=== PATIENT | female | born 1995 | race Caucasian/White ===

== ENCOUNTER 2018-04-19 13:54 | Emergency (ER) | payer SELFPAY ==
--- NOTE | 2018-04-19 14:37 | ER Document Report ---
ED Medical Screen (RME) - General Chief Complaint: Dizziness Stated Complaint: BLOOD SUGAR ISSUES Time Seen by Provider: 04/19/18 14:34 Notes: RAPID MEDICAL EVALUATION DISCLOSURE I have seen this patient as part of a Rapid Medical Evaluation and, if applicable, placed any initially appropriate orders. The patient will be seen and fully evaluated, including a full history and physical exam, by a provider ( in Main ED or Fast Track) when a room becomes available. 22-year-old female here with complaints of lightheadedness, feeling "shaky" over the past few weeks. The last time she went to her doctor, PCP wanted her to be checked for diabetes however patient states her Medicaid fell through so she is unable to go back to be tested. Today she had an episode while she was driving and felt like she was going to pass out so she had to kiln puller. She denies any previous history of diabetes but has a family history of diabetes in her father. Denies any other symptoms. No new medications or medication changes. EXAM CTAB RRR - Related Data Allergies/Adverse Reactions: No Known Allergies Allergy (Verified 04/19/18 14:35) Past Medical History - Social History Chew tobacco use (# tins/day): No Frequency of alcohol use: None Drug Abuse: None Renal/ Medical History: Denies: Hx Peritoneal Dialysis Physical Exam - Vital signs Vitals: Temp Pulse Resp BP Pulse Ox 98.2 F 81 16 120/70 100 04/19/18 14:17 04/19/18 14:17 04/19/18 14:17 04/19/18 14:17 04/19/18 14:17 Course - Vital Signs Vital signs: Temp Pulse Resp BP Pulse Ox 98.2 F 81 16 120/70 100 04/19/18 14:17 04/19/18 14:17 04/19/18 14:17 04/19/18 14:17 04/19/18 14:17 Doctor's Discharge - Discharge Referrals: PAULINE JOHN MD [Primary Care Provider] - Follow up as needed
[2018-04-19 16:00] LABS: ABSOLUTE EOSINOPHILS # (AUTO) 0.7 10^3/uL (0.0-0.6); ABSOLUTE LYMPHOCYTES (AUTO) 2.5 10^3/uL (0.5-4.7); ABSOLUTE MONOCYTES (AUTO) 0.6 10^3/uL (0.1-1.4); ABSOLUTE NEUT (AUTO) 5.8 10^3/uL (1.7-8.2); BASOPHILS % (AUTO) 0.4 % (0-2); EOSINOPHILS % (AUTO) 6.9 % (0-6); HEMATOCRIT 45.3 % (36.0-47.0); HEMOGLOBIN 15.7 g/dL (12.0-15.5); LYMPHOCYTES % (AUTO) 25.5 % (13-45); MEAN CORPUSCULAR HEMOGLOBIN 29.6 pg (27.0-33.4); MEAN CORPUSCULAR HGB CONC 34.7 g/dL (32.0-36.0); MEAN CORPUSCULAR VOLUME 85 fl (80-97); MONOCYTES % (AUTO) 6.5 % (3-13); PLATELET COUNT 226 10^3/uL (150-450); RED BLOOD COUNT 5.31 10^6/uL (3.72-5.28); RED CELL DISTRIBUTION WIDTH 12.8 % (11.5-14.0); SEGMENTED NEUTROPHILS % (AUTO) 60.7 % (42-78); TOTAL CELLS COUNTED % (AUTO) 100 %; WHITE BLOOD COUNT 9.6 10^3/uL (4.0-10.5)
[2018-04-19 16:19] LABS: BLOOD UREA NITROGEN 15 mg/dL (7-20); CALCIUM 9.4 mg/dL (8.4-10.2); CARBON DIOXIDE 26 mmol/L (22-30); CHLORIDE 104 mmol/L (98-107); GLUCOSE 90 mg/dL (75-110); POTASSIUM 4.1 mmol/L (3.6-5.0); SODIUM 144.2 mmol/L (137-145)
[2018-04-19 16:20] LABS: ALANINE AMINOTRANSFERASE 17 U/L (9-52); ALBUMIN 4.7 g/dL (3.5-5.0); ALKALINE PHOSPHATASE 56 U/L (38-126); ANION GAP 14 (5-19); ASPARTATE AMINO TRANSFERASE 26 U/L (14-36); BILIRUBIN,DIRECT 0.3 mg/dL (0.0-0.4); BILIRUBIN,TOTAL 0.6 mg/dL (0.2-1.3); PHOSPHORUS 3.7 mg/dL (2.5-4.5); TOTAL PROTEIN 7.9 g/dL (6.3-8.2)
[2018-04-19 16:23] LABS: APPEARANCE,URINE SLIGHTLY-CLOUDY; BILIRUBIN,URINE NEGATIVE (NEGATIVE); COLOR,URINE YELLOW; GLUCOSE, URINE NEGATIVE (NEGATIVE); KETONES,URINE NEGATIVE (NEGATIVE); LEUKOCYTE ESTERASE,URINE TRACE (NEGATIVE); NITRITE,URINE NEGATIVE (NEGATIVE); PROTEIN,URINE NEGATIVE (NEGATIVE); URINE SPECIFIC GRAVITY 1.021
[2018-04-19 17:18] VITALS: BP 98/64
--- NOTE | 2018-04-19 17:28 | ER Document Report ---
ED Dizziness/Weakness - General Chief Complaint: Dizziness Stated Complaint: BLOOD SUGAR ISSUES Time Seen by Provider: 04/19/18 14:34 Mode of Arrival: Ambulatory Information source: Patient Notes: Patient is a 22-year-old female who presents to the ER today for possible blood sugar issues, dizziness, lightheadedness and almost passing out while driving today. Patient states that "since high school" she has had episodes of shaking and dizziness that causes her to almost pass out. She has never actually passed out. Patient has been evaluated by her primary care provider for this and they thought she may have diabetes, but she has not been seen by them recently to actually have a workup done for that. She states this is just a thing that they talked about. Patient states that she does eat 3 meals a day and does see an improvement in her symptoms whenever she eats peanut butter crackers or drinks juice during her symptoms. Patient denies any palpitations, chest pain or shortness of breath during the symptoms. Patient also states that she drinks plenty of water daily. - Related Data Allergies/Adverse Reactions: No Known Allergies Allergy (Verified 04/19/18 14:35) Past Medical History - General Information source: Patient - Social History Smoking Status: Never Smoker Chew tobacco use (# tins/day): No Frequency of alcohol use: None Drug Abuse: None Family History: Reviewed & Not Pertinent Patient has suicidal ideation: No Patient has homicidal ideation: No Renal/ Medical History: Denies: Hx Peritoneal Dialysis Review of Systems - Review of Systems Constitutional: No symptoms reported EENT: No symptoms reported Cardiovascular: No symptoms reported Respiratory: No symptoms reported Gastrointestinal: No symptoms reported Genitourinary: No symptoms reported Female Genitourinary: No symptoms reported Musculoskeletal: No symptoms reported Skin: No symptoms reported Hematologic/Lymphatic: No symptoms reported Neurological/Psychological: See HPI Physical Exam - Vital signs Vitals: Temp Pulse Resp BP Pulse Ox 98.2 F 81 16 120/70 100 04/19/18 14:17 04/19/18 14:17 04/19/18 14:17 04/19/18 14:17 04/19/18 14:17 - Notes Notes: PHYSICAL EXAMINATION: GENERAL: Well-appearing and in no acute distress. HEAD: Atraumatic, normocephalic. EYES: Pupils equal round and reactive to light, extraocular movements intact, sclera anicteric, conjunctiva are normal. NECK: Normal range of motion, supple without lymphadenopathy LUNGS: CTAB and equal. No wheezes rales or rhonchi. HEART: Regular rate and rhythm without murmurs ABDOMEN: Soft, no tenderness. No guarding, no rebound EXTREMITIES: Normal range of motion, no pitting edema. No cyanosis. NEUROLOGICAL: Cranial nerves grossly intact. Normal sensory/motor exams. Good and equal strength bilaterally, Kernig and Brudzinski's signs negative, Romberg' s test normal, normal heel to gu testing PSYCH: Normal mood, normal affect. SKIN: Warm, Dry, normal turgor, no rashes or lesions noted Course - Re-evaluation Re-evalutation: 04/19/18 22:25 Lab work is all unremarkable today including an Accu-Chek of 88 on arrival. Patient states that she just had lunch prior to arrival. A1c today is 4.7. I do believe that patient does have low blood sugars on average. I did advise that she and carbohydrates to at least breakfast and dinner. [id number] in the room prior to discharge states that she actually does not eat any breakfast that she knows of. I did advise that patient follow up with her primary care provider. Patient looks well and has normal vital signs today. She is not shaky or having any dizziness here. Orthostatic vital signs do not give any evidence of orthostatic hypotension. - Vital Signs Vital signs: Temp Pulse Resp BP Pulse Ox 98.2 F 72 16 98/64 L 100 04/19/18 14:17 04/19/18 17:17 04/19/18 14:17 04/19/18 17:17 04/19/18 14:17 - Laboratory Result Diagrams: 04/19/18 15:40 04/19/18 15:40 Laboratory results interpreted by me: 04/19/18 04/19/18 04/19/18 15:40 15:40 15:58 RBC 5.31 H Hgb 15.7 H Eosinophils % 6.9 H Absolute Eosinophils 0.7 H Hemoglobin A1c % 4.6 L Urine Urobilinogen 2.0 H Ur Leukocyte Esterase TRACE H Discharge - Discharge Clinical Impression: Low blood sugar Condition: Stable Disposition: HOME, SELF-CARE Additional Instructions: Return immediately for any new or worsening symptoms. Follow up with primary care provider, call tomorrow to make followup appointment. Please start to incorporate some carbohydrates into your diet to keep her sugar higher for longer. This will do much better than eating sugary foods or drinking sugary drinks. Forms: Return to Work Referrals: PAULINE JOHN MD [NO LOCAL MD] - Follow up as needed
== END 2018-04-19 17:45 | disposition home or self-care (01) ==
LOC: ER 13:54
DX: R42 Dizziness and giddiness (principal)
CPT/HCPCS: 36415; 80053; 81001; 81025; 82962; 83036; 83735; 84100; 85025; 99284

== ENCOUNTER 2018-07-15 08:37 | Emergency (ER) | payer SELFPAY ==
--- NOTE | 2018-07-15 09:33 | ER Document Report ---
HPI - HPI Pain Level: 4 Notes: Patient is a 22-year-old female who presents to the ED complaining of right anterior leg redness and mild swelling x1 day. Patient states that she did have a cut to that leg from a few days ago that she has been on antibiotics for. Patient states that she was on her feet for 9 hours yesterday cutting her when she noticed increased swelling to that area last night. Patient states that she elevated her legs and has had resolution of that swelling since. Patient states that he did feel warm initially as well. She denies any drug allergies. Patient does admit to smoking. Denies any prolonged immobilization , distance travel, recent surgery/trauma, personal cancer history, hormone use, or previous DVT/PE. Denies any headache, fever, URI, sore throat, chest pain, palpitations, syncope, cough, shortness of breath, wheeze, dyspnea, abdominal pain, nausea/vomiting/diarrhea, urinary retention, dysuria, hematuria, loss of control of bowel or bladder, numbness/tingling, muscle paralysis/weakness, or rash. - ROS Systems Reviewed and Negative: Yes All other systems reviewed and negative Past Medical History - Social History Smoking Status: Current Every Day Smoker Family History: Reviewed & Not Pertinent Renal/ Medical History: Denies: Hx Peritoneal Dialysis Vertical Provider Document - CONSTITUTIONAL Agree With Documented VS: Yes Notes: PHYSICAL EXAMINATION: GENERAL: Well-appearing, well-nourished and in no acute distress. LUNGS: Breath sounds clear to auscultation bilaterally and equal. No wheezes rales or rhonchi. HEART: Regular rate and rhythm without murmurs, rubs, gallops. Musculoskeletal: Rt LE: FROM to passive/active. Strength 5+/5. No asymmetry to lower extremities. Pierce neg b/l. Extremities: Trace pitting edema b/l (equal). Peripheral pulses 2+. Capillary refill less than 3 seconds. NEUROLOGICAL: Cranial nerves grossly intact. Normal speech, normal gait. Normal sensory, motor exams PSYCH: Normal mood, normal affect. SKIN: There is an abrasion to the rt anterior lower leg w/o tenderness and only mild erythema and some induration. No fluctuance, streaks, or purulence. Just proximal there is a superficial mildly erythemic are of the skin that has minimal tenderness w/o palpable cord. There is no deep tenderness to the calf and the area of concern is anterior lower leg. N/V intact distal otherwise. - INFECTION CONTROL TRAVEL OUTSIDE OF THE [place] IN LAST 30 DAYS: No Course - Re-evaluation Re-evalutation: 07/15/18 09:33 Patient is an afebrile, well-hydrated, 22-year-old ED with right lower extremity erythema and suspected mild cellulitis. Differential would include a superficial venous thrombosis, but very low suspicion for any DVT based on H&P today. Vitals are acceptable without any significant tachycardia, tachypnea, or hypoxia. PE is otherwise unremarkable for any neurovascular compromise, obvious tendon/ligament rupture, obvious fracture/dislocation, septic joint. There is no leg asymmetry bilaterally with only trace edema bilaterally. The area of concern is superficial to the skin without any deep tenderness or posterior calf discomfort. Patient has lower risk factors for DVT and has an obvious recent abrasion to the anterior lower leg just distal to the area of concern which makes me suspect more of a mild cellulitis without any fluctuance or evidence of abscess. Patient had improvement of her symptoms since yesterday. I did review with patient that she appears to normally have trace pitting edema and by being on her legs and standing all day long may increase the swelling in her lower extremities. Recommend elevation and compression stockings. Conservative measures otherwise for symptoms. Patient may continue her doxycycline as she has noted improvement in the appearance of the wound distal. Recheck with your PCM in 2-3 days. Return to the ED with any worsening /concerning symptoms otherwise as reviewed in discharge. Patient is in agreement. - Vital Signs Vital signs: Temp Pulse Resp BP Pulse Ox 98.5 F 86 16 105/62 100 07/15/18 08:45 07/15/18 08:45 07/15/18 08:45 07/15/18 08:45 07/15/18 08:45 Discharge - Discharge Clinical Impression: Right leg pain Condition: Stable Disposition: HOME, SELF-CARE Instructions: Leg Pain Nonspecific ([facility]) Additional Instructions: Rest, Ice, Compression, Elevation Compression stockings Tylenol/ibuprofen as needed Light stretches daily Strength exercises as able Moist heat and massage may help F/u with your PCP in 2-3 days for a recheck Consider consult(s) with Orthopedics/physical therapy for ongoing/worsening symptoms Return to the ED with any worsening symptoms and/or development of fever, headache, chest pain, palpitations, syncope, shortness of breath, trouble breathing, abdominal pain, n/v/d, muscle weakness/paralysis, numbness/tingling, swelling, redness, or other worsening symptoms that are concerning to you. Forms: Smoking Cessation Education Referrals: [facility] [Provider Group] - Follow up as needed
--- NOTE | 2018-07-15 09:46 | ER Document Report ---
HPI - HPI Pain Level: 4 Notes: Patient is a 22-year-old female with no significant past medical history presents to the ED complaining of nasal congestion/discharge, postnasal drip, dry irritated throat, occasional dry nonproductive cough secondary to irritation in her throat x1 day. 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 Patient states that she will need a work note. Patient states that she is otherwise been eating and drinking without any difficulties. She is urinating normally and having normal bowel movements. Denies any drug allergies or smoking. No significant cardiopulmonary medical history. Denies any headache, fever, neck pain, chest pain, palpitations, syncope, shortness of breath, wheeze, dyspnea, abdominal pain, nausea/vomiting/ diarrhea, urinary retention, dysuria, hematuria, or rash. - ROS Systems Reviewed and Negative: Yes All other systems reviewed and negative - RESPIRATORY Respiratory: REPORTS: Coughing - c/o dry cough Past Medical History - Social History Smoking Status: Never Smoker Family History: Reviewed & Not Pertinent Patient has suicidal ideation: No Patient has homicidal ideation: No Renal/ Medical History: Denies: Hx Peritoneal Dialysis Vertical Provider Document - CONSTITUTIONAL Agree With Documented VS: Yes Notes: PHYSICAL EXAMINATION: GENERAL: Well-appearing, well-nourished and in no acute distress. A&Ox4. Answers questions appropriately. Moves comfortably w/o notable distress HEAD: Atraumatic, normocephalic. EYES: Pupils equal round and reactive to light, extraocular movements intact, sclera anicteric, conjunctiva are normal. ENT: EAC clear b/l. TM's intact b/l without erythema, fluid, or perforation. Nares patent and with clear discharge. oropharynx w/o erythema without exudates. No tonsilar hypertrophy without erythema or exudate. No palatine shift. Uvula midline. No tongue protrusion. No drooling, hoarseness, or airway compromise. Moist mucous membranes. No sinus tenderness. NECK: Normal range of motion, supple without lymphadenopathy. No rigidity/ meningismus. LUNGS: Breath sounds clear to auscultation bilaterally and equal. No wheezes rales or rhonchi. No retractions HEART: Regular rate and rhythm without murmurs, rubs, gallops. ABDOMEN: Soft, nontender, nondistended abdomen. No guarding, no rebound. No masses appreciated. Normal bowel sounds present. No CVA tenderness bilaterally. No hepatosplenomegaly. NEUROLOGICAL: Normal speech, normal gait. Normal sensory, motor exams PSYCH: Normal mood, normal affect. SKIN: Warm, Dry, normal turgor, no rashes or lesions noted. - INFECTION CONTROL TRAVEL OUTSIDE OF THE [place] IN LAST 30 DAYS: No Course - Re-evaluation Re-evalutation: 07/15/18 09:45 Patient is an afebrile, well-hydrated, 22-year-old female who presents to the ED with acute URI, suspect viral. Vitals are stable. PE is otherwise unremarkable. No labs or imaging warranted at this time based on H&P. Patient has no significant cardiopulmonary or immunocompromised medical conditions. Patient's lungs are clear to auscultation bilaterally without tachycardia, hypoxia, or tachypnea. Patient is tolerating p.o. without any difficulties. Low suspicion for any meningitis, sepsis, peritonsillar/pharyngeal abscess, respiratory compromise, severe dehydration, or other emergent systemic condition at this time. Patient is aware this condition can change from initial presentation and she needs to monitor symptoms closely. Conservative measures otherwise for symptoms. Recheck with your PCM in 3-5 days. Return to the ED with any worsening/concerning symptoms otherwise as reviewed in discharge. Patient is in agreement. Work note provided. - Vital Signs Vital signs: Temp Pulse Resp BP Pulse Ox 98.5 F 86 16 105/62 100 07/15/18 08:45 07/15/18 08:45 07/15/18 08:45 07/15/18 08:45 07/15/18 08:45 Discharge - Discharge Clinical Impression: Acute URI Condition: Stable Disposition: HOME, SELF-CARE Additional Instructions: Maintain adequate fluid intake Take meds as directed tylenol/ibuprofen as needed over the counter cold medication as needed for symptoms Humidified air may help Wash your hands regularly Wear a mask when coughing F/u: with your PCM in 3-5 days for a recheck Return to the ED with any fever, worsening pain, chest pain, palpitations, syncope, worsening VINCENT, neck pain/stiffness, shortness of breath, wheezing, drooling, trouble swallowing/breathing, abdominal pain, n/v/d, rash, or worsening/concerning symptoms otherwise. Forms: Return to Work Referrals: [facility] [Provider Group] - Follow up as needed [facility] [Provider Group] - Follow up as needed
[2018-07-15 10:20] VITALS: BP 100/65
== END 2018-07-15 10:20 | disposition home or self-care (01) ==
LOC: ER 08:37
DX: J06.9 Acute upper respiratory infection, unspecified (principal); R09.81 Nasal congestion; R09.82 Postnasal drip; R09.89 Other specified symptoms and signs involving the circulatory and respiratory systems; R05 Cough
CPT/HCPCS: 99283

== ENCOUNTER 2018-07-23 12:48 | Emergency (ER) | payer SELFPAY ==
[2018-07-23] MEDS ORDERED: PSEUDOEPHEDRINE HCL 30 MG TABLET PO ONE (13:57)
[2018-07-23] MEDS ORDERED: IBUPROFEN 800 MG TABLET PO ONE (13:57)
--- NOTE | 2018-07-23 13:59 | ER Document Report ---
HPI - HPI Patient complains to provider of: Cough, wheezing Onset: Last week Onset/Duration: Persistent Quality of pain: Achy Pain Level: 4 Context: Patient presents complaining of cough with wheezing and congestion. Patient states she was here last week with similar symptoms. Patient denies any fever. Associated Symptoms: Nonproductive cough, Rhinnorhea, Sinus pain/drainage. denies: Fever Exacerbated by: Denies Relieved by: Denies Similar symptoms previously: Yes Recently seen / treated by doctor: Yes - ROS ROS below otherwise negative: Yes Systems Reviewed and Negative: Yes All other systems reviewed and negative - CONSTITUTIONAL Constitutional: DENIES: Fever - EENT EENT: REPORTS: Sore Throat, Nasal Drainage-Clear, Congestion - NEURO Neurology: DENIES: Headache - CARDIOVASCULAR Cardiovascular: DENIES: Chest pain - RESPIRATORY Respiratory: REPORTS: Coughing. DENIES: Trouble Breathing - GASTROINTESTINAL Gastrointestinal: DENIES: Nausea, Patient vomiting - MUSCULOSKELETAL Musculoskeletal: DENIES: Back Pain, Neck Pain - DERM Skin Color: Normal Skin Problems: None Past Medical History - General Information source: Patient - Social History Smoking Status: Never Smoker Frequency of alcohol use: None Drug Abuse: None Occupation: Daycare provider Lives with: Family Family History: Reviewed & Not Pertinent - Medical History Medical History: Negative Renal/ Medical History: Denies: Hx Peritoneal Dialysis Surgical Hx: Negative Vertical Provider Document - CONSTITUTIONAL Agree With Documented VS: Yes Exam Limitations: No Limitations General Appearance: WD/WN, No Apparent Distress - INFECTION CONTROL TRAVEL OUTSIDE OF THE [place] IN LAST 30 DAYS: No - HEENT HEENT: Atraumatic, Normocephalic, Pharyngeal Tenderness. negative: Pharyngeal Exudate, Pharyngeal Erythema, Tympanic Membrane Red, Tympanic Membrane Bulging - NECK Neck: Normal Inspection, Supple. negative: Lymphadenopathy-Left, Lymphadenopathy-Right - RESPIRATORY Respiratory: Breath Sounds Normal, No Respiratory Distress, Chest Non-Tender. negative: Rales, Rhonchi, Wheezing - CARDIOVASCULAR Cardiovascular: Regular Rate, Regular Rhythm, No Murmur - MUSCULOSKELETAL/EXTREMETIES Musculoskeletal/Extremeties: MAEW - NEURO Level of Consciousness: Awake, Alert, Appropriate Motor/Sensory: No Motor Deficit - DERM Integumentary: Warm, Dry, No Rash Course - Re-evaluation Re-evalutation: 07/23/18 15:37 Respirations even and unlabored, patient nontoxic in appearance. Discussed worsening signs or symptoms that patient should return immediately for. - Vital Signs Vital signs: Temp Pulse Resp BP Pulse Ox 98.2 F 61 16 103/59 L 100 07/23/18 13:20 07/23/18 13:20 07/23/18 13:20 07/23/18 13:20 07/23/18 13:20 - Diagnostic Test Radiology reviewed: Image reviewed, Reports reviewed Discharge - Discharge Clinical Impression: Cough Sinusitis Qualifiers: Sinusitis location: unspecified location Chronicity: acute Recurrence: not specified as recurrent Qualified Code(s): J01.90 - Acute sinusitis, unspecified Condition: Stable Disposition: HOME, SELF-CARE Instructions: Augmentin ([facility]), Inhaled Bronchodilators ([facility]), Sinusitis ([facility]), Sore Throat ([facility]) Additional Instructions: Return immediately for any new or worsening symptoms Followup with your primary care provider, call tomorrow to make a followup appointment Use saline nasal spray [id number] to help with congestion symptoms Prescriptions: Albuterol Sulfate [Ventolin Hfa] 2 puff IH Q4HP PRN #17 gm PRN Reason: Amox Tr/Potassium Clavulanate [Augmentin 875-125 Tablet] 1 tab PO BID 10 Days tablet Guaifenesin/Pseudoephedrne HCl [Mucinex D ER Tablet] 1 each PO Q12 PRN #12 tab.er.12h PRN Reason: Forms: Return to Work Referrals: [facility] [Provider Group] - Follow up as needed
--- NOTE | 2018-07-23 15:29 | RADIOLOGY REPORT (SQ) ---
EXAM DESCRIPTION: CHEST 2 VIEWS COMPLETED DATE/TIME: 07/23/2018 3:18 pm REASON FOR STUDY: cough COMPARISON: None. TECHNIQUE: Frontal and lateral radiographic views of the chest acquired. NUMBER OF VIEWS: Two view. LIMITATIONS: None. FINDINGS: LUNGS AND PLEURA: No opacities, masses or pneumothorax. No pleural effusion. MEDIASTINUM AND HILAR STRUCTURES: No masses or contour abnormalities. HEART AND VASCULAR STRUCTURES: Heart normal size. No evidence for failure. BONES: No acute findings. HARDWARE: None in the chest. OTHER: No other significant finding. IMPRESSION: NO SIGNIFICANT RADIOGRAPHIC FINDING IN THE CHEST. TECHNICAL DOCUMENTATION: JOB ID: [id number] [employer]- All Rights Reserved Reading location - IP/workstation name: [email or web address]
[2018-07-23 15:47] VITALS: BP 108/69
== END 2018-07-23 15:47 | disposition home or self-care (01) ==
LOC: ER 12:48
DX: J01.90 Acute sinusitis, unspecified (principal); R05 Cough; R09.81 Nasal congestion
CPT/HCPCS: 71046; 87070; 87880; 99283

== ENCOUNTER 2018-09-20 18:53 | Emergency (ER) | payer SELFPAY ==
[2018-09-20] MEDS ORDERED: ONDANSETRON 4 MG TAB.RAPDIS PO ONE (19:42)
[2018-09-20] MEDS ORDERED: IBUPROFEN 800 MG TABLET PO ONE (19:42)
[2018-09-20 20:11] LABS: APPEARANCE,URINE SLIGHTLY-CLOUDY; BILIRUBIN,URINE NEGATIVE (NEGATIVE); COLOR,URINE YELLOW; GLUCOSE, URINE NEGATIVE (NEGATIVE); KETONES,URINE NEGATIVE (NEGATIVE); LEUKOCYTE ESTERASE,URINE NEGATIVE (NEGATIVE); NITRITE,URINE NEGATIVE (NEGATIVE); PROTEIN,URINE NEGATIVE (NEGATIVE); URINE SPECIFIC GRAVITY 1.017; UROBILINOGEN,URINE NEGATIVE mg/dL (<2.0)
[2018-09-20 20:21] LABS: A TYPE INFLUENZA AG NEGATIVE (NEGATIVE); B INFLUENZA AG NEGATIVE (NEGATIVE)
--- NOTE | 2018-09-20 20:21 | ER Document Report ---
HPI - HPI Patient complains to provider of: Flu symptoms Time Seen by Provider: 09/20/18 19:31 Onset: Other - 3 days Onset/Duration: Persistent Quality of pain: Achy Pain Level: 3 Context: Patient presents complaining of flulike symptoms for the past 3 days. Patient complains of generalized body aches and weakness. Patient reports fever of 102 yesterday. Patient does complain of nausea but denies any vomiting or diarrhea. Patient does report cough as well this been nonproductive. Associated Symptoms: Body/muscle aches, Nonproductive cough, Fever, Nausea. denies: Earache, Vomiting, Shortness of breath, Sore throat Exacerbated by: Denies Relieved by: Denies Similar symptoms previously: No Recently seen / treated by doctor: No - ROS ROS below otherwise negative: Yes Systems Reviewed and Negative: Yes All other systems reviewed and negative - CONSTITUTIONAL Constitutional: REPORTS: Fever, Chills - EENT EENT: DENIES: Sore Throat, Congestion - CARDIOVASCULAR Cardiovascular: DENIES: Chest pain - RESPIRATORY Respiratory: REPORTS: Coughing. DENIES: Trouble Breathing - GASTROINTESTINAL Gastrointestinal: REPORTS: Nausea. DENIES: Abdominal Pain, Patient vomiting, Diarrhea - URINARY Urinary: DENIES: Dysuria - REPRODUCTIVE Reproductive: DENIES: : - MUSCULOSKELETAL Musculoskeletal: DENIES: Back Pain Notes: Generalized body aches - DERM Skin Color: Normal Skin Problems: None Past Medical History - General Information source: Patient - Social History Smoking Status: Never Smoker Frequency of alcohol use: None Drug Abuse: None Occupation: Daycare Lives with: Spouse/Significant other Family History: Reviewed & Not Pertinent Patient has suicidal ideation: No Patient has homicidal ideation: No - Medical History Medical History: Negative Renal/ Medical History: Denies: Hx Peritoneal Dialysis Surgical Hx: Negative Vertical Provider Document - CONSTITUTIONAL Agree With Documented VS: Yes Exam Limitations: No Limitations General Appearance: WD/WN, No Apparent Distress Notes: Nontoxic appearance - INFECTION CONTROL TRAVEL OUTSIDE OF THE [place] IN LAST 30 DAYS: No - HEENT HEENT: Atraumatic, Normal ENT Exam, Normocephalic - NECK Neck: Normal Inspection, Supple. negative: Lymphadenopathy-Left, Lymphadenopathy-Right Notes: No meningismus - RESPIRATORY Respiratory: Breath Sounds Normal, No Respiratory Distress, Chest Non-Tender. negative: Rales, Rhonchi, Wheezing - CARDIOVASCULAR Cardiovascular: Regular Rate, Regular Rhythm, No Murmur. negative: Tachycardia - GI/ABDOMEN Gastrointestinal: Abdomen Soft, Abdomen Non-Tender - BACK Back: Normal Inspection - MUSCULOSKELETAL/EXTREMETIES Musculoskeletal/Extremeties: YARIEL VASQUES - NEURO Level of Consciousness: Awake, Alert, Appropriate Motor/Sensory: No Motor Deficit - DERM Integumentary: Warm, Dry, No Rash Course - Re-evaluation Re-evalutation: 09/20/18 20:38 Patient with stable vital signs, negative influenza test. No findings worrisome for pneumonia. Patient nontoxic in appearance. We will treat symptomatically at this time. - Vital Signs Vital signs: Temp Pulse Resp BP Pulse Ox 98.1 F 77 18 103/66 99 09/20/18 18:55 09/20/18 18:55 09/20/18 18:55 09/20/18 18:55 09/20/18 18:55 - Laboratory Laboratory results interpreted by me: 09/20/18 20:38 Labs- Entire Visit 09/20/18 09/20/18 19:50 19:55 Urine Color YELLOW Urine Appearance SLIGHTLY-CLOUDY Urine pH 7.0 Ur Specific [place] 1.017 Urine Protein NEGATIVE Urine Glucose (UA) NEGATIVE Urine Ketones NEGATIVE Urine Blood NEGATIVE Urine Nitrite NEGATIVE Urine Bilirubin NEGATIVE Urine Urobilinogen NEGATIVE Ur Leukocyte Esterase NEGATIVE Urine WBC (Auto) 1 Urine RBC (Auto) 1 Squamous Epi Cells Auto 2 Urine Mucus (Auto) RARE Urine Ascorbic Acid NEGATIVE Urine HCG, Qual NEGATIVE Influenza A (Rapid) NEGATIVE Influenza B (Rapid) NEGATIVE - Diagnostic Test Radiology reviewed: Pending, Image reviewed Discharge - Discharge Clinical Impression: Nausea Upper respiratory infection Qualifiers: URI type: unspecified URI Qualified Code(s): J06.9 - Acute upper respiratory infection, unspecified Condition: Stable Disposition: HOME, SELF-CARE Instructions: Upper Respiratory Illness ([facility]), Acetaminophen, Nausea or Vomiting, Nonspecific ([facility]) Additional Instructions: Return immediately for any new or worsening symptoms Followup with your primary care provider, call tomorrow to make a followup appointment Prescriptions: Benzonatate [Tessalon [place] 100 mg Capsule] 100 mg PO Q8HP PRN #20 cap PRN Reason: Naproxen [Naprosyn 250 Nmg Tablet] 1 tab PO BID #14 tablet Ondansetron HCl [Zofran 4 mg Tablet] 1 - 2 tab PO Q6 PRN #15 tablet PRN Reason: Forms: Return to Work Referrals: ABDI MAYA MD [Primary Care Provider] - Follow up as needed
--- NOTE | 2018-09-20 20:54 | RADIOLOGY REPORT (SQ) ---
EXAM DESCRIPTION: CHEST 2 VIEWS COMPLETED DATE/TIME: 09/20/2018 8:20 pm REASON FOR STUDY: cough COMPARISON: Chest x-ray 07/23/2018. EXAM PARAMETERS: NUMBER OF VIEWS: two views TECHNIQUE: Digital Frontal and Lateral radiographic views of the chest acquired. RADIATION DOSE: NA LIMITATIONS: none FINDINGS: LUNGS AND PLEURA: No consolidation, pneumothorax or pleural effusion. MEDIASTINUM AND HILAR STRUCTURES: No masses or contour abnormalities. HEART AND VASCULAR STRUCTURES: Heart normal size. No evidence for failure. BONES: No acute findings. HARDWARE: None in the chest. IMPRESSION: NO ACUTE RADIOGRAPHIC FINDING IN THE CHEST. TECHNICAL DOCUMENTATION: JOB ID: [id number] 2 [employer]- All Rights Reserved Reading location - IP/workstation name: [email or web address]
[2018-09-20 21:08] VITALS: BP 100/71
== END 2018-09-20 21:07 | disposition home or self-care (01) ==
LOC: ER 18:53
DX: J06.9 Acute upper respiratory infection, unspecified (principal); R11.0 Nausea; M79.10 Myalgia, unspecified site; R53.1 Weakness; R50.9 Fever, unspecified; R05 Cough
CPT/HCPCS: 99284; 81025; 81001; 87804; 71046; S0119